=== PATIENT | female | born 1960 | race Caucasian/White ===

== ENCOUNTER 2021-04-29 23:39 | Emergency (ER) | payer BC ==
[~2021-04-29] VITALS: Ht 177.8 cm; Wt 84.1 kg
[2021-04-29 23:44] VITALS: BP 120/73
[2021-04-30] MEDS ORDERED: ibuprofen tablet 400 MG TABLET PO ONE (02:20)
[2021-04-30] MEDS ORDERED: HYDR-3965 PO (02:46)
== END 2021-04-30 02:59 | disposition home or self-care (01) ==
LOC: ER 23:40
DX: S20.212A Contusion of left front wall of thorax, initial encounter (principal); Z88.1 Allergy status to other antibiotic agents; Z88.8 Allergy status to other drugs, medicaments and biological substances; Z72.89 Other problems related to lifestyle; V58.4XXA Person boarding or alighting a pick-up truck or van injured in noncollision transport accident, initial encounter; Y93.89 Activity, other specified; Y92.89 Other specified places as the place of occurrence of the external cause; Y99.8 Other external cause status
CPT/HCPCS: 71101; 99283